=== PATIENT | female | born 1995 | race American Indian/Alaskan Native ===

== ENCOUNTER 2018-05-19 23:31 | Emergency (ER) | payer MEDICAID ==
[2018-05-20 02:17] VITALS: BP 121/77
[2018-05-20] MEDS ORDERED: NACL 0.9% 1000 ML 1,000 ML IV ONE (02:17)
[2018-05-20] MEDS ORDERED: TYLENOL PO ONE (02:20)
[2018-05-20 02:48] LABS: Hematocrit 42.7 % (30.3-42.9); Hemoglobin 14.5 gm/dl (10.1-14.3); Mean Corpuscular HGB Conc 34 % (30-34); Mean Corpuscular Hemoglobin 33 pg (28-32); Mean Corpuscular Volume 98 fl (79-97); Platelet Count 204 K/mm3 (140-440); Red Blood Count 4.34 M/mm3 (3.65-5.03); Red Cell Distribution Width 12.8 % (13.2-15.2)
[2018-05-20 03:07] LABS: Alanine Aminotransferase 17 units/L (7-56); Albumin 4.5 g/dL (3.9-5); BUN/Creatinine Ratio 14; Blood Urea Nitrogen 10 mg/dL (7-17); Calcium 9.6 mg/dL (8.4-10.2); Hemolysis Index 6
[2018-05-20 05:42] LABS: Bilirubin,Urine NEG (Negative); Blood,Urine NEG (Negative); Color,Urine Yellow (Yellow); Mucus,Urine FEW /HPF; Protein,Urine <15 mg/dL mg/dL (Negative); Urobilinogen,Urine < 2.0 mg/dL (<2.0)
[2018-05-20 06:38] LABS: Anisocytosis 1+; Basophils % (Manual) 0 % (0.0-1.8); Hypochromasia 1+; Total Cells Counted 100
[2018-05-20 06:39] LABS: Platelet Estimate Consistent w Auto
== END 2018-05-20 04:45 | disposition left against medical advice (07) ==
LOC: ED 23:31
DX: R10.9 Unspecified abdominal pain (principal); Z53.21 Procedure and treatment not carried out due to patient leaving prior to being seen by health care provider
CPT/HCPCS: 36415; 80053; 81001; 83690; 84703; 85007; 85025

== ENCOUNTER 2019-06-07 20:20 | Emergency (ER) | payer SELFPAY ==
[2019-06-07] MEDS ORDERED: SOLU-Medrol IV ONE (20:31)
[2019-06-07] MEDS ORDERED: PROVENTIL IH ONE (20:31)
[2019-06-07] MEDS ORDERED: ZOSYN/NS 3.375GM/50ML 3.375 GM/50 ML BAG IV ONE (20:31)
[2019-06-07] MEDS ORDERED: ATROVENT IH ONE (20:31)
[2019-06-07] MEDS ORDERED: NACL 0.9% 1000 ML 1,000 ML IV ONE (20:32)
--- NOTE | 2019-06-07 20:35 | Emergency Department Report ---
ED Shortness of Breath HPI - General Chief Complaint: Dyspnea/Respdistress Stated Complaint: COUGH Time Seen by Provider: 06/07/19 20:27 Source: patient, EMS Mode of arrival: Stretcher Limitations: No Limitations - History of Present Illness Initial Comments: Patient is 24-year-old female with history of asthma. Patient brought to the emergency room via EMS with difficulty breathing and cough for the last 3 days. Patient is a heavy smoker. Patient also found to be having a temperature of 100.4. She denied any chest pain. No nausea or vomiting. MD Complaint: shortness of breath, cough -: days(s) (3) Severity: moderate Known History Of: asthma Context: recent URI - Related Data Previous Rx's Medication Instructions Recorded Last Taken Type HYDROcodone/APAP 5-325 [[place] 1 each PO Q6HR PRN #20 tablet 09/01/18 Unknown Rx 5/325] metroNIDAZOLE [Flagyl] 500 mg PO Q12HR #14 tab 11/09/18 Unknown Rx traMADol [Ultram] 50 mg PO Q6HR PRN #10 tablet 11/09/18 Unknown Rx Allergies Allergy/AdvReac Type Severity Reaction Status Date / Time ibuprofen Allergy Swelling Verified 05/20/18 02:17 ED Review of Systems ROS: Stated complaint: COUGH Other details as noted in HPI Comment: All other systems reviewed and negative Constitutional: chills, fever Respiratory: cough, shortness of breath, SOB with exertion, SOB at rest, wheezing. denies: orthopnea, stridor Cardiovascular: palpitations, dyspnea on exertion. denies: chest pain, orthopnea Gastrointestinal: denies: abdominal pain, nausea, vomiting, diarrhea, constipation, hematemesis, melena, hematochezia Genitourinary: denies: dysuria Musculoskeletal: denies: back pain Neurological: denies: headache, weakness, numbness, paresthesias, confusion, abnormal gait ED Past Medical Hx - Past Medical History Previous Medical History?: Yes Hx Asthma: Yes Additional medical history: Hypoglycemia - Surgical History Hx Cholecystectomy: Yes Additional Surgical History: Surgery on Pancrease - Social History Smoking Status: Current Every Day Smoker Substance Use Type: None - Medications Home Medications: Home Medications Medication Instructions Recorded Confirmed Last Taken Type HYDROcodone/APAP 5-325 [[place] 1 each PO Q6HR PRN #20 tablet 09/01/18 Unknown Rx 5/325] metroNIDAZOLE [Flagyl] 500 mg PO Q12HR #14 tab 11/09/18 Unknown Rx traMADol [Ultram] 50 mg PO Q6HR PRN #10 tablet 11/09/18 Unknown Rx ED Physical Exam - General Limitations: No Limitations General appearance: alert, in distress - Head Head exam: Present: atraumatic, normocephalic, normal inspection - Eye Eye exam: Present: normal appearance, PERRL - ENT ENT exam: Present: normal exam, normal orophraynx, mucous membranes moist - Neck Neck exam: Present: normal inspection, full ROM. Absent: tenderness, meningi smus, lymphadenopathy, thyromegaly - Respiratory Respiratory exam: Present: respiratory distress, wheezes, rales, rhonchi, accessory muscle use, decreased breath sounds, prolonged expiratory. Absent: stridor - Cardiovascular Cardiovascular Exam: Present: tachycardia - GI/Abdominal GI/Abdominal exam: Present: soft, normal bowel sounds. Absent: distended, tenderness, guarding, rebound, rigid, organomegaly, mass, bruit, pulsatile mass, hernia - Extremities Exam Extremities exam: Present: normal inspection, full ROM, normal capillary refill. Absent: pedal edema, calf tenderness - Back Exam Back exam: Present: normal inspection, full ROM. Absent: CVA tenderness (R), CVA tenderness (L) - Neurological Exam Neurological exam: Present: alert, oriented X3, CN II-XII intact, normal gait - Skin Skin exam: Present: warm, intact, normal color ED Course Vital Signs 06/07/19 06/07/19 06/07/19 20:30 21:07 22:00 Temperature 100.8 F H 99 F Pulse Rate 112 H 68 Pulse Rate [ 101 H 100 H Anterior] Respiratory 24 18 Rate Respiratory 18 19 Rate [Anterior] Blood Pressure 165/92 118/78 [Left] O2 Sat by Pulse 98 100 Oximetry 06/07/19 22:29 Temperature Pulse Rate Pulse Rate [ Anterior] Respiratory 18 Rate Respiratory Rate [Anterior] Blood Pressure [Left] O2 Sat by Pulse Oximetry ED Medical Decision Making - Lab Data Result diagrams: 06/07/19 20:44 06/07/19 20:44 - Radiology Data Radiology results: report reviewed Chest x-ray is unremarkable. - Medical Decision Making Patient is 24-year-old female with history of asthma. Patient brought to the emergency room via EMS with difficulty breathing and cough for the last 3 days. Patient is a heavy smoker. Patient also found to be having a temperature of 100.4. She denied any chest pain. No nausea or vomiting. Patient received albuterol 5 mg and Atrovent 0.5 mg. She also received Solu- Medrol and Zosyn. Patient stated that she is feeling much better. Labs reviewed and is unremarkable. Chest x-ray is unremarkable. Patient's symptoms is consistent with asthmatic bronchitis. Patient will be discharged home with Levaquin, prednisone and Robitussin. Patient advised to follow-up with her primary care physician in the next 2-3 days and to return to the ER if symptoms are not improved. Patient is also counseled about smoking cessation. Critical care attestation.: If time is entered above; I have spent that time in minutes in the direct care of this critically ill patient, excluding procedure time. ED Disposition Clinical Impression: Asthmatic bronchitis, Shortness of breath Disposition: DC-01 TO HOME OR SELFCARE Is pt being admited?: No Condition: Stable Instructions: Acute Bronchitis (ED), Chronic Bronchitis (ED) Referrals: CORDELL SCHUMACHER MD [Primary Care Provider] - 3-5 Days
[2019-06-07 20:56] LABS: Basophils % (Auto) 0.4 % (0.0-1.8); Eosinophils # (Auto) 0.1 K/mm3 (0.0-0.4); Eosinophils % (Auto) 1.2 % (0.0-4.3); Hematocrit 38.1 % (30.3-42.9); Lymphocytes # (Auto) 0.6 K/mm3 (1.2-5.4); Lymphocytes % (Auto) 11.6 % (13.4-35.0); Mean Corpuscular HGB Conc 34 % (30-34); Mean Corpuscular Volume 97 fl (79-97); Monocytes # (Auto) 0.3 K/mm3 (0.0-0.8); Monocytes % (Auto) 6.7 % (0.0-7.3); Platelet Count 182 K/mm3 (140-440); Red Blood Count 3.94 M/mm3 (3.65-5.03)
[2019-06-07] MEDS ORDERED: ZOFRAN ONE (20:58)
[2019-06-07] MEDS ORDERED: ZOFRAN IV ONE (21:04)
[2019-06-07 21:18] LABS: Alanine Aminotransferase 15 units/L (7-56); Albumin 4.1 g/dL (3.9-5); BUN/Creatinine Ratio 9; Blood Urea Nitrogen 7 mg/dL (7-17); Calcium 8.9 mg/dL (8.4-10.2); Hemolysis Index 9
--- NOTE | 2019-06-07 21:22 | XRay Report ---
CHEST 1 VIEW 06/07/2019 8:46 PM INDICATION / CLINICAL INFORMATION: SOB. COMPARISON: None available. FINDINGS: SUPPORT DEVICES: None. HEART / MEDIASTINUM: No significant abnormality. LUNGS / PLEURA: No significant pulmonary or pleural abnormality. No pneumothorax. ADDITIONAL FINDINGS: No significant additional findings. IMPRESSION: 1. No acute findings. Signer Name: Feroz Ruelas MD Signed: 06/07/2019 9:17 PM Workstation Name: [id number]
[2019-06-07] MEDS ORDERED: TYLENOL PO ONE (22:20)
[2019-06-07] MEDS ORDERED: ROBITUSSIN AC PO ONE (22:45)
[2019-06-07 23:15] VITALS: BP 115/71
== END 2019-06-07 23:20 | disposition home or self-care (01) ==
LOC: ED 20:20
DX: J45.909 Unspecified asthma, uncomplicated (principal); E16.2 Hypoglycemia, unspecified; F17.200 Nicotine dependence, unspecified, uncomplicated; Z79.899 Other long term (current) drug therapy; Z90.49 Acquired absence of other specified parts of digestive tract; Z98.890 Other specified postprocedural states; Z88.6 Allergy status to analgesic agent
CPT/HCPCS: 36415; 71045; 80053; 82140; 85025; 87040; 94644; 96365; 96375; 99284; J2405; J2543; J2930; J7030

== ENCOUNTER 2019-06-21 20:27 | Emergency (ER) | payer SELFPAY ==
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
[2019-06-21 21:42] LABS: Hematocrit 42.5 % (30.3-42.9); Hemoglobin 14.5 gm/dl (10.1-14.3); Mean Corpuscular HGB Conc 34 % (30-34); Mean Corpuscular Volume 97 fl (79-97); Platelet Count 209 K/mm3 (140-440); Red Blood Count 4.41 M/mm3 (3.65-5.03); Red Cell Distribution Width 13.6 % (13.2-15.2)
[2019-06-21 21:57] LABS: BUN/Creatinine Ratio 14; Blood Urea Nitrogen 10 mg/dL (7-17); Calcium 9.6 mg/dL (8.4-10.2); Hemolysis Index 8
[2019-06-21 22:10] LABS: HCG Qualitative,Urine Negative (Negative)
[2019-06-21 22:14] LABS: Bilirubin,Urine NEG (Negative); Blood,Urine NEG (Negative); Color,Urine Yellow (Yellow); Mucus,Urine FEW /HPF; Protein,Urine <15 mg/dL mg/dL (Negative)
[2019-06-22] MEDS ORDERED: BENADRYL IV ONE (02:43)
[2019-06-22] MEDS ORDERED: NACL 0.9% 1000 ML 1,000 ML IV ONE (02:43)
[2019-06-22] MEDS ORDERED: XYLOCAINE TOPICAL 4% TP ONE (02:43)
[2019-06-22] MEDS ORDERED: REGLAN IV ONE (02:50)
[2019-06-22] MEDS ORDERED: MAGNESIUM SULFATE 2GM/50ML 2 GM/50 ML BAG IV ONE (02:50)
[2019-06-22] MEDS ORDERED: FIORICET PO ONE (02:50)
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
[2019-06-22 03:57] LABS: Amphetamine Screen,Urine PRESUMPTIVE NEGATIVE; Benzodiazepines Screen,Urine PRESUMPTIVE NEGATIVE; Cocaine Screen,Urine PRESUMPTIVE NEGATIVE; Methadone Screen,Urine PRESUMPTIVE NEGATIVE; Opiate Screen,Urine PRESUMPTIVE NEGATIVE
[2019-06-22 04:20] LABS: Cannabinoid Screen,Urine PRESUMPTIVE POSITIVE
--- NOTE | 2019-06-22 05:39 | Cat Scan Report ---
CT head/brain wo con INDICATION / CLINICAL INFORMATION: Headache and syncope. Migraine headaches for 2 months. TECHNIQUE: All CT scans at this location are performed using CT dose reduction for ALARA by means of automated e xposure control. COMPARISON: None available. FINDINGS: The ventricular system is normal in size and configuration. No focal lesion or mass effect is seen. T here is no evidence of intracranial hemorrhage or major vessel occlusion. The visualized paranasal si nuses and mastoid air cells are clear. The calvarium is intact. IMPRESSION: No acute abnormality. Signer Name: Didier Blanca MD Signed: 06/22/2019 5:35 AM Workstation Name: [id number]
[2019-06-22 05:41] VITALS: BP 107/69
--- NOTE | 2019-06-22 05:55 | Cat Scan Report ---
CTA head with intravenous contrast CLINICAL HISTORY: headache, syncope, whooshing sound in right ear TECHNIQUE: 0.625 mm thick contiguous axial scans were obtained from the skull base to the skull vertex during ra pid bolus administration of intravenous contrast material. Multiplanar reconstructions were produced in the coronal and sagittal planes. In addition 3 plane MIP instructions were produced and reviewed f or this report. The axial source images and reconstructed images were reviewed for this report. All CT scans at this location are performed using CT dose reduction for ALARA by means of automated e xposure control. FINDINGS: The caliber of the intracranial vessels is normal throughout. There is no indication of intracranial stenosis or large vessel occlusion. There is no indication of vasculitis. There is no evidence of aneurysm or other vascular malformation. IMPRESSION: No abnormalities are identified on CTA head. The study was performed and 0356 hours. I was notified by Andreia, the patient's imaging technologist, that t he examination was ready for evaluation at about 0440 hours. The reason for this delay is unknown to me. CONTRAST DOSE REPORT: Omnipaque 350: 100 ml administered intravenously. Signer Name: Douglas Stevens MD Signed: 06/22/2019 5:51 AM Workstation Name: [id number]
--- NOTE | 2019-06-22 05:58 | Cat Scan Report ---
CTA neck without and with intravenous contrast material CLINICAL HISTORY: headache syncope TECHNIQUE: Following acquisition of a timing bolus 0.625 mm thick contiguous axial scans were obtained from aort ic arch to the skull base during rapid bolus intravenous contrast infusion. In addition to evaluation of axial source images multiplanar reconstructions were produced and reviewed for this report. 3 gabby ne MIP reconstructions were produced and reviewed for this examination. FINDINGS: No abnormalities are seen at the origins of the great vessels. Common carotid arteries, carotid bifurcations and cervical portions of the internal carotid arteries all have a normal appearance. There is no indication of hemodynamically significant stenosis. Normal and symmetrical vertebral arteries are present. There is no indication of stenosis along the c ourse of the vertebral arteries. Basilar artery is not included on this study. The degree of stenosis, if any, is determined utilizing NASCET like criteria. In this case there is no indication of hemodynamically significant stenosis. Evaluation of the nonvascular soft tissue structures reveal no abnormality. There is no indication of cervical lymphadenopathy. No abnormalities are seen along the course of the airway. Visualized porti ons of the parotid glands and the submandibular salivary glands have a normal appearance. Thyroid gla nd has a normal appearance. Evaluation of the lung apices reveals no evidence of lung nodule or infil trate. Evaluation of the cervical spine revealed no significant abnormalities. IMPRESSION: 1. Normal CTA neck. Contrast dose report: Omnipaque 350: 100 ml, administered intravenously All CT examinations performed at this facility utilize modulated dose reduction, iterative reconstruc tion or weight-based dosing, as appropriate, to obtain a radiation dose which is as low as can reason ably be achieved. Signer Name: Douglas Stevens MD Signed: 06/22/2019 5:54 AM Workstation Name: [id number]
== END 2019-06-22 06:27 | disposition home or self-care (01) ==
LOC: ED 20:27
DX: G43.909 Migraine, unspecified, not intractable, without status migrainosus (principal); F12.10 Cannabis abuse, uncomplicated; J45.909 Unspecified asthma, uncomplicated; F17.200 Nicotine dependence, unspecified, uncomplicated; Z79.899 Other long term (current) drug therapy
CPT/HCPCS: 36415; 70450; 70496; 70498; 80048; 80307; 81001; 81025; 82550; 82962; 83735; 84702; 85027; 93005; 93010; 96365; 96366; 96375; 99285; J1200; J2765; J3475; J7030; Q9967; 80320; G0480

== ENCOUNTER 2019-09-07 21:59 | Emergency (ER) | payer MEDICAID ==
--- NOTE | 2019-09-07 22:19 | Event Note ---
ED Screening Note Date of service: 09/07/19 Time: 22:15 ED Screening Note: This is a 24 y.o. F. that presents to the ER with abdominal pain radiating to back since waking this morning. Patient is 7 weeks and followed by [facility]. Patient reports symptoms started with abdominal pain. Vaginal bleeding started 30 minutes ago. LMP 07/23/2019 A1 This initial assessment/diagnostic orders/clinical plan/treatment(s) is/are subject to change based on patients health status, clinical progression and re- assessment by fellow clinical providers in the ED. Further treatment and workup at subsequent clinical providers discretion. Patient/guardian urged not to elope from the ED as their condition may be serious if not clinically assessed and managed. Initial orders include: Labs & OB US
[2019-09-07 23:08] LABS: Basophils % (Auto) 0.4 % (0.0-1.8); Hematocrit 39.8 % (30.3-42.9); Hemoglobin 13.5 gm/dl (10.1-14.3); Lymphocytes # (Auto) 2.1 K/mm3 (1.2-5.4); Lymphocytes % (Auto) 41.8 % (13.4-35.0); Mean Corpuscular HGB Conc 34 % (30-34); Mean Corpuscular Volume 96 fl (79-97); Monocytes # (Auto) 0.5 K/mm3 (0.0-0.8); Monocytes % (Auto) 10.8 % (0.0-7.3); Platelet Count 206 K/mm3 (140-440); Red Blood Count 4.17 M/mm3 (3.65-5.03); Red Cell Distribution Width 13.3 % (13.2-15.2)
--- NOTE | 2019-09-08 00:14 | Ultrasound Report ---
ULTRASOUND OBSTETRIC INDICATION / CLINICAL INFORMATION: vag bleeding, 7 weeks gest, abdominal pain. Serum hCG level = 404 Clinical Gestational Age (GA): 6 weeks 4 days TECHNIQUE: Transabdominal and Transvaginal. COMPARISON: None available. FINDINGS: GESTATIONAL SAC: There is small sonolucency in the fundus of the uterus with mean sac diameter of 6.8 mm which corresponds to 5 weeks 3 days gestational age. YOLK SAC: Not seen. EMBRYO/FETUS: Not seen. ADNEXA: Left ovary appears normal. Small, slightly complex right ovarian cysts versus follicles. FREE FLUID: None. ADDITIONAL FINDINGS: None. IMPRESSION: 1. Small sonolucency in the uterus which could represent very early gestational sac which would corre spond to 5 weeks 3 days gestational age. No definite yolk sac or embryonic pole is identified. 2. Small, slightly complex right ovarian cysts versus follicles. No free fluid. Signer Name: Sana Munoz MD Signed: 09/08/2019 12:09 AM Workstation Name: [id number]
[2019-09-08 01:39] LABS: INR 1.25 (0.87-1.13)
[2019-09-08] MEDS ORDERED: SODIUM CHLORIDE 0.9% 1000 ML 1,000 ML IV ONE (01:59)
--- NOTE | 2019-09-08 01:59 | Emergency Department Report ---
ED Female HPI - General Chief complaint: Vaginal Bleeding Stated complaint: PREG 7WKS/VAG BLEEDING Time Seen by Provider: 09/07/19 22:15 Source: patient Mode of arrival: Ambulatory Limitations: No Limitations - History of Present Illness Initial comments: Patient is 24-year-old female 4 para 3. Patient presented to the ER complaining of vaginal bleeding and lower abdominal pain since last night. Patient stated that she is approximately 7 weeks . She has been followed by [facility]. Patient denied any fever, chills, chest pain or shortness of breath. Patient also denied any dizziness or loss of consciousness. MD Complaint: vaginal bleeding, pelvic pain -: Last night Radiation: R flank Severity: moderate Severity scale (0 -10): 5 Consistency: constant Are you Now?: Yes - Related Data Sexually active: Yes Previous Rx's Medication Instructions Recorded Last Taken Type HYDROcodone/APAP 5-325 [[place] 1 each PO Q6HR PRN #20 tablet 09/01/18 Unknown Rx 5/325] metroNIDAZOLE [Flagyl] 500 mg PO Q12HR #14 tab 11/09/18 Unknown Rx traMADol [Ultram] 50 mg PO Q6HR PRN #10 tablet 11/09/18 Unknown Rx ALBUTEROL NEB's [Proventil 0.083% 2.5 mg IH TID PRN #30 nebu 06/07/19 Unknown Rx NEBS] Prednisone [predniSONE 10 mg 10 mg PO .TAPER #1 tab.ds.pk 06/07/19 Unknown Rx (6-Day Pack, 21 Tabs)] guaiFENesin/CODEINE [Robitussin AC] 10 ml PO TID PRN #100 ml 06/07/19 Unknown Rx levoFLOXacin [Levaquin TAB] 500 mg PO QDAY #7 tablet 06/07/19 Unknown Rx Butalb/Acetaminophen/Caffeine 1 cap PO Q6HR PRN #15 cap 06/22/19 Unknown Rx [Fioricet 50-300-40 mg CAP] Metoclopramide [Reglan] 10 mg PO QID PRN #30 tablet 06/22/19 Unknown Rx Allergies Allergy/AdvReac Type Severity Reaction Status Date / Time ibuprofen Allergy Swelling Verified 05/20/18 02:17 ED Review of Systems ROS: Stated complaint: PREG 7WKS/VAG BLEEDING Other details as noted in HPI Comment: All other systems reviewed and negative Constitutional: denies: chills, fever Respiratory: denies: cough, shortness of breath Gastrointestinal: abdominal pain. denies: nausea, vomiting Genitourinary: abnormal menses ED Past Medical Hx - Past Medical History Previous Medical History?: Yes Hx Asthma: Yes Additional medical history: Hypoglycemia - Surgical History Hx Cholecystectomy: Yes Additional Surgical History: Surgery on Pancreas - Social History Smoking Status: Never Smoker Substance Use Type: None - Medications Home Medications: Home Medications Medication Instructions Recorded Confirmed Last Taken Type HYDROcodone/APAP 5-325 [[place] 1 each PO Q6HR PRN #20 tablet 09/01/18 Unknown Rx 5/325] metroNIDAZOLE [Flagyl] 500 mg PO Q12HR #14 tab 11/09/18 Unknown Rx traMADol [Ultram] 50 mg PO Q6HR PRN #10 tablet 11/09/18 Unknown Rx ALBUTEROL NEB's [Proventil 0.083% 2.5 mg IH TID PRN #30 nebu 06/07/19 Unknown Rx NEBS] Prednisone [predniSONE 10 mg 10 mg PO .TAPER #1 tab.ds.pk 06/07/19 Unknown Rx (6-Day Pack, 21 Tabs)] guaiFENesin/CODEINE [Robitussin AC] 10 ml PO TID PRN #100 ml 06/07/19 Unknown Rx levoFLOXacin [Levaquin TAB] 500 mg PO QDAY #7 tablet 06/07/19 Unknown Rx Butalb/Acetaminophen/Caffeine 1 cap PO Q6HR PRN #15 cap 06/22/19 Unknown Rx [Fioricet 50-300-40 mg CAP] Metoclopramide [Reglan] 10 mg PO QID PRN #30 tablet 06/22/19 Unknown Rx ED Physical Exam - General Limitations: No Limitations General appearance: alert, in no apparent distress - Head Head exam: Present: atraumatic, normocephalic, normal inspection - Eye Eye exam: Present: normal appearance, PERRL - ENT ENT exam: Present: normal exam, normal orophraynx, mucous membranes moist - Neck Neck exam: Present: normal inspection, full ROM. Absent: tenderness, meningismus, lymphadenopathy, thyromegaly - Respiratory Respiratory exam: Present: normal lung sounds bilaterally - Cardiovascular Cardiovascular Exam: Present: regular rate, normal rhythm, normal heart sounds - GI/Abdominal GI/Abdominal exam: Present: soft, normal bowel sounds. Absent: distended, tenderness, guarding, rebound, rigid, organomegaly, mass, bruit, pulsatile mass, hernia - Extremities Exam Extremities exam: Present: normal inspection, full ROM, normal capillary refill. Absent: pedal edema, calf tenderness - Back Exam Back exam: Present: normal inspection, full ROM. Absent: CVA tenderness (R), CVA tenderness (L) - Neurological Exam Neurological exam: Present: alert, oriented X3, CN II-XII intact, normal gait, reflexes normal - Psychiatric Psychiatric exam: Present: normal mood - Skin Skin exam: Present: warm, intact, normal color ED Course Vital Signs 09/07/19 22:04 Temperature 98.5 F Pulse Rate 106 H Respiratory 18 Rate Blood Pressure 148/76 O2 Sat by Pulse 98 Oximetry - Reevaluation(s) Reevaluation #1: 09/08/19 05:07 Patient received 1 L of normal saline, morphine and Zofran. Patient stated that she is feeling much better. Vital signs stable. Patient discharged home in a stable condition. ED Medical Decision Making - Lab Data Result diagrams: 09/07/19 22:33 - Radiology Data Radiology results: report reviewed - Medical Decision Making Patient is 24-year-old female 4 para 3. Patient presented to the ER complaining of vaginal bleeding and lower abdominal pain since last night. Patient stated that she is approximately 7 weeks . She has been followed by [facility]. Patient denied any fever, chills, chest pain or shortness of breath. Patient also denied any dizziness or loss of consciousness. I discussed the patient was Dr. Segundo Gibson, OB,. I informed him about the ultrasound report which showed possible ectopic . Dr. Gibson advised patient can be discharged home and to follow-up with him in his office in 2 days for repeat of beta-hCG quantitative. Critical care attestation.: If time is entered above; I have spent that time in minutes in the direct care of this critically ill patient, excluding procedure time. ED Disposition Clinical Impression: Ectopic Disposition: DC-01 TO HOME OR SELFCARE Is pt being admited?: No Condition: Stable Instructions: Ectopic (ED) Referrals: [facility] [Provider Group] - 3-5 Days
[2019-09-08] MEDS ORDERED: MORPHINE 4 MG/1 ML INJ ONE (02:18)
[2019-09-08] MEDS ORDERED: ONDANSETRON 4 MG/2 ML INJ ONE (02:18)
[2019-09-08] MEDS ORDERED: ONDANSETRON 4 MG/2 ML INJ IV ONE (06:18)
[2019-09-08] MEDS ORDERED: MORPHINE 4 MG/1 ML INJ IV ONE (06:18)
[2019-09-08 06:20] VITALS: BP 118/72
== END 2019-09-08 06:19 | disposition home or self-care (01) ==
LOC: ED 21:59
DX: O00.90 Unspecified ectopic pregnancy without intrauterine pregnancy (principal); J45.909 Unspecified asthma, uncomplicated; Z3A.01 Less than 8 weeks gestation of pregnancy
CPT/HCPCS: 36415; 76801; 76817; 84702; 84703; 85025; 85610; 85730; 86850; 86900; 86901; 99284; J2270; J2405; J7030

== ENCOUNTER 2019-09-09 11:29 | Emergency (ER) | payer MEDICAID ==
[2019-09-09 11:36] VITALS: BP 114/77
--- NOTE | 2019-09-09 12:05 | Event Note ---
ED Screening Note Date of service: 09/09/19 Time: 12:03 ED Screening Note: 24 y o female presents with pelvic LMP 07/23/19 This initial assessment/diagnostic orders/clinical plan/treatment(s) is/are subject to change based on patients health status, clinical progression and re- assessment by fellow clinical providers in the ED. Further treatment and workup at subsequent clinical providers discretion. Patient/guardian urged not to elope from the ED as their condition may be serious if not clinically assessed and managed. Initial orders include:
--- NOTE | 2019-09-09 12:23 | Emergency Department Report ---
Chief Complaint: Abdominal Pain Stated Complaint: ECTOPIC Time Seen by Provider: 09/09/19 12:22 - HPI History of Present Illness: Patient is 24-year-old female 4 para 3. who was evaluated 2 days ago for vaginal bleeding and lower abdominal pain. Patient stated that LMP was 07/23/2019 She followed by [facility]. Patient denied any fever, chills, chest pain or shortness of breath. Patient states that bleeding has resolved now to spotting and still having having pelvic pain. She presented today because she was told to follow-up for repeat Quant - ROS Review of Systems: As seen in HPI - Exam Vital Signs: Vital Signs 09/09/19 11:35 Temperature 98.1 F Pulse Rate 93 H Respiratory 16 Rate Blood Pressure 114/77 O2 Sat by Pulse 99 Oximetry Physical Exam: GENERAL: Alert and oriented x3, no apparent distress, Normal Gait, atraumatic. ABDOMEN: No organomegaly was noted,Positive bowel sounds, soft, and non- distended. . Nontender to palpation on all Quadrants, NO CVA tenderness. SKIN: Warm and dry, No lesions, No ulceration or induration present. MSE screening note: Focused history and physical exam performed. Due to findings the following was ordered: ED Medical Decision Making - Medical Decision Making 24-year-old female presents to ED with incomplete ED course: Pt received a repeat quantitative in the ED today which was lower than 2 days ago ED I discussed result findings with the patient. I discussed with the patient that her Quant is way lower than it was 2 days ago patient states since that incompleted miscarriage Vital signs normalized patient is in no acute distress. I discussed with the patient if follow-up with her [facility]. Discussed and emphasized the importance of following up with her [facility] for repeat Quant and a repeat ultrasound within a week I discussed all labs and ultrasound findings with the patient. I discussed with the patient that he if bleeding worsens or new symptoms develop to return to ED immediately I discussed with the patient that it bleeding was to return or worsen to return to ED immediately. ED Disposition for MSE Clinical Impression: Spontaneous , Inevitable spontaneous Disposition: - TO HOME OR SELFCARE Is pt being admited?: No Does the pt Need Aspirin: No Condition: Stable Instructions: Spontaneous Miscarriage (ED), Abdominal Pain (ED) Additional Instructions: Follow up with OBGyn within 1 week for follow up Blood work and US If you have any worsening pain or bleeding please return to ED Take medication as prescribed Prescriptions: metroNIDAZOLE [Flagyl TAB] 500 mg PO Q12HR #14 tab HYDROcodone/APAP 5-325 [[place] 5-325 mg TAB] 1 each PO Q6HR PRN #12 tablet PRN Reason: Pain Referrals: [facility] [Outside] - 3-5 Days [facility] [Provider Group] - 3-5 Days Forms: Accompanied Note, Work/School Release Form(ED) Time of Disposition: 13:37
[2019-09-09 14:17] LABS: Bilirubin,Urine NEG (Negative); Blood,Urine NEG (Negative); Color,Urine Yellow (Yellow); Protein,Urine <15 mg/dL mg/dL (Negative); Urobilinogen,Urine < 2.0 mg/dL (<2.0)
== END 2019-09-09 15:05 | disposition home or self-care (01) ==
LOC: ED 11:29
DX: O03.9 Complete or unspecified spontaneous abortion without complication (principal); Z3A.08 8 weeks gestation of pregnancy
CPT/HCPCS: 36415; 81001; 84702

== ENCOUNTER 2019-09-25 23:38 | Emergency (ER) | payer MEDICAID ==
[2019-09-26 00:02] VITALS: BP 140/87
--- NOTE | 2019-09-26 00:46 | Emergency Department Report ---
ED Rash HPI - HPI Chief Complaint: Allergic Reaction Stated Complaint: ALLERGIC REACTION Time Seen by Provider: 09/26/19 00:45 Duration: Today Location: Abdomen Suspected Cause: Medication Rash Symptoms: No Facial Swelling, No Tongue/Oral Swelling, No Breathing Difficulties, No Choking Sensation, No Wheezing/Dyspnea, No Peeling, No Blistering, No Fever, No Lightheaded, No Malaise, No Myalgias Other History: 24-year-old female presents to the emergency room for concern of a rash on her chest left in finger. Patient states that she was taking Flagyl and she started having this circular lesion on her chest. Patient denies any difficulty swallowing no shortness of breath no chest pain. Patient denies any alcohol use. ED Review of Systems ROS: Stated complaint: ALLERGIC REACTION Other details as noted in HPI Comment: All other systems reviewed and negative ED Past Medical Hx - Past Medical History Previous Medical History?: Yes Hx Asthma: Yes Additional medical history: Hypoglycemia - Surgical History Past Surgical History?: Yes Hx Cholecystectomy: Yes Additional Surgical History: Surgery on Pancreas - Social History Smoking Status: Never Smoker Substance Use Type: None - Medications Home Medications: Home Medications Medication Instructions Recorded Confirmed Last Taken Type traMADoL [Ultram] 50 mg PO Q6HR PRN #10 tablet 11/09/18 Unknown Rx ALBUTEROL NEB's [Proventil 0.083% 2.5 mg IH TID PRN #30 nebu 06/07/19 Unknown Rx NEBS] Prednisone [predniSONE 10 mg 10 mg PO .TAPER #1 tab.ds.pk 06/07/19 Unknown Rx (6-Day Pack, 21 Tabs)] guaiFENesin/CODEINE [Robitussin AC] 10 ml PO TID PRN #100 ml 06/07/19 Unknown Rx levoFLOXacin [Levaquin TAB] 500 mg PO QDAY #7 tablet 06/07/19 Unknown Rx Butalb/Acetaminophen/Caffeine 1 cap PO Q6HR PRN #15 cap 06/22/19 Unknown Rx [Fioricet 50-300-40 mg CAP] Metoclopramide [Reglan] 10 mg PO QID PRN #30 tablet 06/22/19 Unknown Rx HYDROcodone/APAP 5-325 [[place] 1 each PO Q6HR PRN #12 tablet 09/09/19 Unknown Rx 5-325 mg TAB] metroNIDAZOLE [Flagyl TAB] 500 mg PO Q12HR #14 tab 09/09/19 Unknown Rx Doxycycline Hyclate [Doxycycline 100 mg PO Q12HR #20 tab 09/26/19 Unknown Rx Hyclate TAB] Rash Exam - Exam General: Vital signs noted. No distress. Alert and acting appropriately. HEENT: No Periorbital Edema, No Conjuctival Injection, No Chemosis, No Perioral Edema, No Tongue Edema, No Uvular Edema, No Compromised Airway, No Drooling Lungs: Yes Good Air Exchange (Normal Breath Sounds), No Wheezes, No Ronchi, No Stridor, No Cough, No Labored Respirations, No Retractions, No Use of Accessory Muscles, No Other Abnormal Lung Sounds Skin: Yes Other (circular rash with bull's eye ring erythematous, edematous nontender to touch) Other: Positive: Abdomen Normal ED Course Vital Signs 09/26/19 00:00 Temperature 98.5 F Pulse Rate 78 Respiratory 16 Rate Blood Pressure 140/87 O2 Sat by Pulse 100 Oximetry ED Medical Decision Making - Medical Decision Making 24-year-old female presents to the emergency room for concern of a rash on her chest left in finger. Patient states that she was taking Flagyl and she started having this circular lesion on her chest. Patient denies any difficulty swallowing no shortness of breath no chest pain. Patient denies any alcohol use. Patient appears to have a bullous rash on mid chest and left middle finger. Patient will be treated with doxycycline 100 mg by mouth twice a day for 10 days. Discussed patient to discontinue taking the metronidazole. Critical care attestation.: If time is entered above; I have spent that time in minutes in the direct care of this critically ill patient, excluding procedure time. ED Disposition Clinical Impression: Acute Lyme disease Disposition: DC-01 TO HOME OR SELFCARE Is pt being admited?: No Does the pt Need Aspirin: No Condition: Stable Instructions: Acute Rash (ED) Additional Instructions: Discontinue using metronidazole. Start doxycycline as prescribed. Follow-up with her primary care provider for symptoms persist or gets worse.. Prescriptions: Doxycycline Hyclate [Doxycycline Hyclate TAB] 100 mg PO Q12HR #20 tab Referrals: [facility] [Provider Group] - 3-5 Days
== END 2019-09-26 01:23 | disposition home or self-care (01) ==
LOC: ED 23:38
DX: A69.20 Lyme disease, unspecified (principal); J45.909 Unspecified asthma, uncomplicated; Z90.49 Acquired absence of other specified parts of digestive tract; Z88.5 Allergy status to narcotic agent; Z79.899 Other long term (current) drug therapy
CPT/HCPCS: 99282

== ENCOUNTER 2020-04-22 13:54 | Emergency (ER) | payer MEDICAID ==
--- NOTE | 2020-04-22 14:49 | Emergency Department Report ---
Blank Doc - Documentation Documentation: 25-year-old female that presents with back pain and bilateral pelvic pain. Was sent by [facility] for r/o ectopic . Denies any vaginal bleeding. This initial assessment/diagnostic orders/clinical plan/treatment(s) is/are subject to change based on patient's health status, clinical progression and re- assessment by fellow clinical providers in the ED. Further treatment and workup at subsequent clinical providers discretion. Patient/guardians urged not to charanjit pe from the ED as their condition may be serious if not clinically assessed and managed. Initial orders include: 1- Patient sent to [facility] for further evaluation and treatment 2- UA 3- US OB
[2020-04-22 15:22] LABS: Bacteria,Urine 1+ /HPF (Negative); Bilirubin,Urine NEG (Negative); Blood,Urine NEG (Negative); Color,Urine Yellow (Yellow); Mucus,Urine 2+ /HPF; Protein,Urine <15 mg/dL mg/dL (Negative); Urobilinogen,Urine < 2.0 mg/dL (<2.0)
--- NOTE | 2020-04-22 16:47 | Ultrasound Report ---
OB ultrasound first trimester INDICATION: Pelvic pain, Transabdominal and transvaginal imaging is performed. FINDINGS: The uterus measures 8.4 cm in length. Endometrial stripe measures 15 mm. There is a 3.3 mm hypoechoic focus within the endometrial cavity possibly representing a small gestational sac. This would correl ate with a 5 week gestation. No pole or heartbeat is identified at this time. The right ovary measures 3.3 cm and the left ovary measures 3.4 cm. There is a 2.6 cm complex cyst in the left ovary. No free fluid is seen. IMPRESSION: There is a possible small gestational sac within the uterus. No pole or heartbeat is identified at this time. Correlation with serum beta hCG levels is recommended. Follow-up ultrasound should be obtained as clinically warranted to evaluate for viable IUP. Signer Name: Hemant Hough MD Signed: 04/22/2020 4:43 PM Workstation Name: [id number]
== END 2020-04-22 17:45 | disposition left against medical advice (07) ==
LOC: ED 13:54
DX: O99.89 Other specified diseases and conditions complicating pregnancy, childbirth and the puerperium (principal); M54.9 Dorsalgia, unspecified; Z3A.01 Less than 8 weeks gestation of pregnancy; Z53.21 Procedure and treatment not carried out due to patient leaving prior to being seen by health care provider
CPT/HCPCS: 36415; 76801; 76817; 81001; 84702

== ENCOUNTER 2020-09-13 18:09 | Outpatient (CLI) | payer MEDICAID ==
[2020-09-13] MEDS ORDERED: LACTATED RINGERS 1,000 ML IV ONE (18:44)
[2020-09-13] MEDS ORDERED: TERBUTALINE 1 MG/1 ML INJ IVP ONE (18:45)
[2020-09-13 19:41] VITALS: BP 111/66
== END 2020-09-13 21:23 | disposition home or self-care (01) ==
LOC: TRG 18:09 → LD 18:09 → UNDOADMIN 18:09 → TRG 21:23 → UNDODISIN 21:23 → TRG 09-25 11:51 → EDSTATUS 09-25 11:51
PROVIDERS: ATTEND Obstetrics & Gynecology
DX: O26.892 Other specified pregnancy related conditions, second trimester (principal); R10.2 Pelvic and perineal pain; Z3A.24 24 weeks gestation of pregnancy
CPT/HCPCS: 59025; J7120; G0378

== ENCOUNTER 2020-12-23 22:58 | Outpatient (CLI) | payer MEDICAID ==
[2020-12-23 23:23] VITALS: BP 117/56
[2020-12-23] MEDS ORDERED: LACTATED RINGERS 1,000 ML IV ONE (23:43)
[2020-12-23] MEDS ORDERED: MORPHINE 4 MG/1 ML INJ IV ONE (23:43)
--- NOTE | 2020-12-24 00:59 | Ultrasound Report ---
ULTRASOUND BIOPHYSICAL PROFILE INDICATION / CLINICAL INFORMATION: CTX. COMPARISON: None available. FINDINGS: BREATHING MOVEMENT = 2 GROSS BODY MOVEMENT = 2 TONE = 2 QUALITATIVE AMNIOTIC FLUID VOLUME = 2 TOTAL BIOPHYSICAL SCORE = 8/8 AMNIOTIC FLUID INDEX (cm) = 9.6 PRESENTATION: Cephalic. HEART RATE (beats per minute): 121 ADDITIONAL FINDINGS: None. IMPRESSION: 1. Biophysical Score = 8/8 Signer Name: Feroz Ruelas MD Signed: 12/24/2020 12:54 AM Workstation Name: [id number]
--- NOTE | 2020-12-24 01:02 | Ultrasound Report ---
ULTRASOUND OBSTETRIC INDICATION / CLINICAL INFORMATION: CTX. Clinical Gestational Age (GA): 38 weeks 5 days TECHNIQUE: Transabdominal. COMPARISON: None available. FINDINGS: There is a single intrauterine . Biparietal Diameter = 9.5 cm = 38 weeks, 5 day(s). Head Circumference = 33.5 cm = 38 weeks, 2 day(s). Abdominal Circumference = 32.7 cm = 36 weeks, 5 day(s). Femur Length = 7.7 cm = 39 weeks, 1 day(s). Average Ultrasound Age (AUA) = 38 weeks, 2 day(s). Heart Rate: 121 beats per minute. Estimated Weight in grams (if calculated): 3286 Estimated Weight Growth Percentile (if calculated): Position: cephalic. Amniotic Fluid Volume: normal Amniotic Fluid Index (JESSIE) in cm (if calculated): 9.6. Maternal Adnexa: Not visualized IMPRESSION: 1. Single, living intrauterine with estimated sonographic age of 38 weeks, 2 day(s). 2. No significant sonographic abnormality. Signer Name: Feroz Ruelas MD Signed: 12/24/2020 12:58 AM Workstation Name: [id number]
[2020-12-24] MEDS ORDERED: ONDANSETRON 4 MG/2 ML INJ IV ONE (01:04)
[2020-12-24] MEDS ORDERED: MORPHINE 4 MG/1 ML INJ IV ONE (01:07)
[2020-12-24] MEDS ORDERED: MORPHINE 4 MG/1 ML INJ IM ONE (02:20)
== END 2020-12-24 04:55 | disposition home or self-care (01) ==
LOC: TRG 22:58 → APU 23:02 → TRG 12-24 04:55
PROVIDERS: ATTEND Obstetrics & Gynecology
DX: O62.9 Abnormality of forces of labor, unspecified (principal); O99.333 Smoking (tobacco) complicating pregnancy, third trimester; F17.200 Nicotine dependence, unspecified, uncomplicated; Z3A.38 38 weeks gestation of pregnancy
CPT/HCPCS: 59025; 76816; 76819; 96361; 96372; 96374; 96375; J2270; J2405; J7120; 76805; 96360

== ENCOUNTER 2022-06-04 09:19 | Emergency (ER) | payer MEDICAID, OTHER ==
--- NOTE | 2022-06-04 10:18 | XRay Report ---
RIGHT FOOT 3 VIEW(S) INDICATION / CLINICAL INFORMATION: right foot injury/big toe COMPARISON: None available. FINDINGS: BONES / JOINT(S): No acute fracture or subluxation. No significant arthritis. SOFT TISSUES: Mild soft tissue swelling of the great toe. ADDITIONAL FINDINGS: None. IMPRESSION: 1. No fracture. Mild soft tissue swelling of the great toe. Signer Name: Sana Munoz MD Signed: 06/04/2022 10:14 AM Workstation Name: [id number]
[2022-06-04] MEDS ORDERED: ACETAMINOPHEN W/CODEINE 300-30 MG TAB PO ONE (14:21)
--- NOTE | 2022-06-04 15:13 | Emergency Department Report ---
ED Lower Extremity HPI - General Chief Complaint: Extremity Injury, Lower Stated Complaint: RIGHT TOE POSSIBLY BROKEN Time Seen by Provider: 06/04/22 14:20 Source: patient Mode of arrival: Ambulatory Limitations: No Limitations - History of Present Illness Initial Comments: Is a 27-year-old female who presents for left great toe pain states she dropped a metal bar on her foot at work 1 day ago. Now 5/10 pain. Patient states only partial weightbearing. There is mild erythema no ecchymosis no deformity. No open wound abrasion or laceration noted. Patient drove self to ED today. And ambulated on her own power chilling. She denies other injury. Patient did report injury to supervisor lump room at work. MD Complaint: foot injury - Related Data Home Medications Medication Instructions Recorded Confirmed Last Taken Vitamin 1 tab PO DAILY 09/13/20 12/29/20 09/13/20 Previous Rx's Medication Instructions Recorded Last Taken Type Acetaminophen/Codeine [Tylenol 1 tab PO Q6H PRN #12 tab 06/04/22 Unknown Rx /Codeine # 3 tab] Allergies Allergy/AdvReac Type Severity Reaction Status Date / Time metronidazole [From Flagyl] Allergy Severe Hives Verified 09/13/20 18:19 ibuprofen Allergy Swelling Verified 05/20/18 02:17 ED Review of Systems ROS: Stated complaint: RIGHT TOE POSSIBLY BROKEN Other details as noted in HPI Constitutional: denies: chills, fever Eyes: denies: eye pain, eye discharge, vision change ENT: denies: ear pain, throat pain Respiratory: denies: cough, shortness of breath, wheezing Cardiovascular: denies: chest pain, palpitations Endocrine: no symptoms reported Gastrointestinal: denies: abdominal pain, nausea, diarrhea Genitourinary: denies: urgency, dysuria, discharge Musculoskeletal: other. denies: back pain, joint swelling, arthralgia Skin: denies: rash, lesions Neurological: denies: headache, weakness, paresthesias Psychiatric: denies: anxiety, depression Hematological/Lymphatic: denies: easy bleeding, easy bruising ED Past Medical Hx - Past Medical History Previous Medical History?: Yes Hx Hypertension: No Hx Congestive Heart Failure: No Hx Diabetes: No Hx Deep Vein Thrombosis: No Hx Renal Disease: No Hx Sickle Cell Disease: No Hx Seizures: No Hx Asthma: Yes Hx COPD: No Hx HIV: No Additional medical history: Hypoglycemia - Surgical History Past Surgical History?: Yes Hx Cholecystectomy: Yes Additional Surgical History: Surgery on Pancreas - Social History Smoking Status: Former Smoker - Medications Home Medications: Home Medications Medication Instructions Recorded Confirmed Last Taken Type Vitamin 1 tab PO DAILY 09/13/20 12/29/20 09/13/20 History Acetaminophen/Codeine [Tylenol 1 tab PO Q6H PRN #12 tab 06/04/22 Unknown Rx /Codeine # 3 tab] ED Physical Exam - General Limitations: No Limitations General appearance: alert, in no apparent distress - Head Head exam: Present: normocephalic, normal inspection - Eye Eye exam: Present: EOMI Pupils: Present: normal accommodation - ENT ENT exam: Present: mucous membranes moist - Neck Neck exam: Present: normal inspection, full ROM. Absent: tenderness - Respiratory Respiratory exam: Present: normal lung sounds bilaterally. Absent: respiratory distress, wheezes - Cardiovascular Cardiovascular Exam: Present: regular rate, normal rhythm, normal heart sounds. Absent: systolic murmur, diastolic murmur, rubs, gallop - GI/Abdominal GI/Abdominal exam: Present: soft, normal bowel sounds. Absent: distended, tenderness - Rectal Rectal exam: Present: deferred - Extremities Exam Extremities exam: Present: full ROM, normal capillary refill - Expanded Lower Extremity Exam Left Foot/Toe exam: Present: full ROM, tenderness, swelling, erythema. Absent: abrasion, laceration (Left great toe), ecchymosis, deformity, dislocation, amputation, puncture wound, foreign body, calcaneal tenderness, tenderness at base of 5th metatarsal, nail avulsion Neuro vascular tendon exam: Absent: pulse deficit, motor deficit, sensory deficit, tendon deficit, foot drop Gait: Positive: observed and limited by pain - Back Exam Back exam: Present: normal inspection, full ROM. Absent: paraspinal tenderness, vertebral tenderness - Neurological Exam Neurological exam: Present: alert, oriented X3, CN II-XII intact, reflexes normal. Absent: motor sensory deficit - Expanded Neurological Exam Expanded Patient oriented to: Present: person, place, time Motor strength exam: RUE: 5, LUE: 5, RLE: 5, LLE: 5 Best Eye Response (Rakan): (4) open spontaneously Best Motor Response (Rakan): (6) obeys commands Best Verbal Response ([place]): (5) oriented Rakan Total: 15 - Psychiatric Psychiatric exam: Present: normal affect, normal mood - Skin Skin exam: Present: warm, dry, intact, normal color. Absent: rash ED Course Vital Signs 06/04/22 09:40 Temperature 98.3 F Pulse Rate 88 Respiratory 18 Rate Blood Pressure 121/83 O2 Sat by Pulse 98 Oximetry ED Lower Extremity MDM - Radiology Data Radiology results: report reviewed, image reviewed RIGHT FOOT 3 VIEW(S) INDICATION / CLINICAL INFORMATION: right foot injury/big toe COMPARISON: None available. FINDINGS: BONES / JOINT(S): No acute fracture or subluxation. No significant arthritis. SOFT TISSUES: Mild soft tissue swelling of the great toe. ADDITIONAL FINDINGS: None. IMPRESSION: 1. No fracture. Mild soft tissue swelling of the great toe. Signer Name: Sana Munoz MD Signed: 06/04/2022 10:14 AM Workstation Name: [id number] Transcribed By: DT Dictated By: Chuy Munoz MD Electronically Authenticated By: Chuy Munoz MD Signed Date/Time: 06/04/22 1014 DD/ 1014 TD/TT: - Medical Decision Making Left foot x-ray no fracture soft tissue swelling ecchymosis distal pulses intact flexion extension are intact there is no abrasion laceration or bleeding. Plan Ortho shoe, crutches, follow-up with Workmen's Comp. doctor in 2 days. Return to the emergency department for symptoms worsen. Patient verbalized agreement and understanding of discharge plan patient DC'd home in stable condition at this time. Critical care attestation.: If time is entered above; I have spent that time in minutes in the direct care of this critically ill patient, excluding procedure time. ED Disposition Clinical Impression: Contusion of left foot Sprain of toe, fifth, left Qualifiers: Encounter type: initial encounter Qualified Code(s): S93.505A - Unspecified sprain of left lesser toe(s), initial encounter Disposition: 01 HOME / SELF CARE / HOMELESS Is pt being admited?: No Does the pt Need Aspirin: No Condition: Stable Instructions: How to Use Cold Therapy, [id number] Additional Instructions: Take medication as prescribed for pain, RICE therapy as directed. Use crutches as directed. Follow-up with your Workmen's Comp. doctor as directed by employer. Follow-up with your doctor in 2 to 3 days. Prescriptions: Acetaminophen/Codeine [Tylenol /Codeine # 3 tab] 1 tab PO Q6H PRN #12 tab PRN Reason: pain Referrals: JESSICA FABIAN MD [Primary Care Provider] - 3-5 Days Forms: Work/School Release Form(ED) Time of Disposition: 15:17
[2022-06-04 15:52] VITALS: BP 128/88
== END 2022-06-04 16:34 | disposition home or self-care (01) ==
LOC: ED 09:19
DX: S93.505A Unspecified sprain of left lesser toe(s), initial encounter (principal); S90.32XA Contusion of left foot, initial encounter; Z88.6 Allergy status to analgesic agent; Z88.8 Allergy status to other drugs, medicaments and biological substances; Z87.891 Personal history of nicotine dependence; J45.909 Unspecified asthma, uncomplicated; X58.XXXA Exposure to other specified factors, initial encounter; Y93.89 Activity, other specified; Y92.89 Other specified places as the place of occurrence of the external cause; Y99.8 Other external cause status
CPT/HCPCS: 99283